=== PATIENT | female | born 1945 | race Caucasian/White ===

== ENCOUNTER → 2024-09-08 | Outpatient (CLI) | payer OTHER, MEDICAID, SELFPAY ==
[2024-09-08 13:12] LABS: Glucose Estimated Average 91 mg/dL (80-131); Hemoglobin A1C 4.8 % Hgb (4.8-6.0)
[2024-09-08 13:22] LABS: Alanine Aminotransferase 12 U/L (10-49); Albumin, Serum 4.2 gm/dL (3.4-4.8); Albumin/Globulin Ratio 1.3 (1.2-2.2); Alkaline Phosphatase 122 U/L (46-116); Anion Gap 10 (7-16); Aspartate Amino Transferase < 10 U/L (0-34); BUN/Creatinine Ratio 11 Ratio (12-20); Bilirubin,Total 0.7 mg/dL (0.3-1.2); Blood Urea Nitrogen 11 mg/dL (9-23); Calcium 9.7 mg/dL (8.3-10.6); Calcium (Corrected) 9.7 mg/dL (8.5-10.1); Carbon Dioxide 26.5 mMol/L (20.0-31.0); Cardiac Risk Estimate 3.1 RATIO (3.7-5.6); Chloride 104 mMol/L (98-107); Cholesterol 145 mg/dL (132-200); Globulin 3.2 gm/dL (2.3-3.5); Glucose 96 mg/dL (74-106); HDL Cholesterol 47 mg/dL (40-60); LDL Cholesterol,Calculated 75 mg/dL (0-130); Osmolality,Calculated 278 (275-295); Potassium 4.1 mMol/L (3.4-5.1); Sodium 140 mMol/L (136-145); Total Protein 7.4 gm/dL (5.7-8.2); Triglycerides 116 mg/dL (30-150); eGFR 57 See Note
[2024-09-14 06:45] LABS: Gamma Glutamyl Transpeptidase* 19 U/L (3-65)
== END | disposition home or self-care (01) ==
LOC: COPL 11:50
PROVIDERS: PCP Family Medicine; Referring Provider Family Medicine; Visit Provider Family Medicine
DX: K75.81 Nonalcoholic steatohepatitis (NASH) (principal); I10 Essential (primary) hypertension; R73.03 Prediabetes
CPT/HCPCS: 36415; 80053; 80061; 82977; 83036

== ENCOUNTER → 2025-05-10 | Outpatient (CLI) | payer OTHER, MEDICAID, SELFPAY ==
[2025-05-10 11:59] LABS: Collection Type, Urine Clean Catch
[2025-05-10 12:12] LABS: Basophils # (Auto) 0.0 Thou/mm3 (0.0-0.2); Basophils % (Auto) 0 % (0-2.5); Eosinophils # (Auto) 0.1 Thou/mm3 (0.0-0.5); Eosinophils % (Auto) 2 % (0-10); Hematocrit 35.9 % (36.0-46.0); Hemoglobin 12.0 g/dL (12.0-16.0); Immature Granulocytes Auto 0.00 Thou/mm3 (0.00-0.00); Lymphocytes # (Auto) 1.6 Thou/mm3 (1.0-4.8); Lymphocytes % (Auto) 27 % (10-50); Mean Corpuscular HGB Conc 33.4 g/dl (31.0-37.0); Mean Corpuscular Hemoglobin 28.7 pg (25.0-35.0); Mean Corpuscular Volume 86 fL (80-100); Monocytes # (Auto) 0.3 Thou/mm3 (0.0-0.8); Monocytes % (Auto) 4 % (0-12); Neutrophils # (Auto) 4.0 Thou/mm3 (1.8-7.7); Neutrophils % (Auto) 67 % (37-80); Nucleated Red Blood Cell # 0.00 Thou/mm3 (0.00-0.00); Nucleated Red Blood Cell % 0 /100 WBC (0); Platelet Count 219 Thou/mm3 (140-440); RDW Standard Deviation 44.6 fL (36.4-46.3); Red Blood Count 4.18 Miln/mm3 (4.00-5.20); White Blood Count 5.9 Thou/mm3 (3.6-11.0)
[2025-05-10 12:13] LABS: Bilirubin,Urine Negative (Negative); Blood,Urine Negative (Negative); Clarity,Urine Clear (Clear/Hazy); Color,Urine Yellow (Lt Yel-Yel); Culture Indicated,Urine Not Indicated; Glucose, Urine Negative (Negative); Ketones,Urine Negative (Negative); Leukocyte Esterase,Urine Positive (Negative); Nitrite,Urine Negative (Negative); PH,Urine 6.5 (5.0-7.0); Protein,Urine Negative (Neg - Trace); RBC,Urine 6 /hpf (0-3); Specific Gravity,Urine 1.022 (1.001-1.035); Squamous Epithelial Cell,Urine 1 /hpf (0-5); Urobilinogen,Urine Negative mg/dL (0.0-1.0); WBC,Urine 2 /hpf (0-5)
[2025-05-10 12:30] LABS: Vitamin D 25 Hydroxy Total 42.3 ng/mL (7.3-40.2)
[2025-05-10 12:35] LABS: Glucose Estimated Average 103 mg/dL (80-131); Hemoglobin A1C 5.2 % Hgb (4.8-6.0)
[2025-05-10 12:38] LABS: Alanine Aminotransferase < 7 U/L (10-49); Albumin, Serum 4.3 gm/dL (3.4-4.8); Albumin/Globulin Ratio 1.4 (1.2-2.2); Alkaline Phosphatase 120 U/L (46-116); Anion Gap 11 (7-16); Aspartate Amino Transferase 16 U/L (0-34); BUN/Creatinine Ratio 10 Ratio (12-20); Bilirubin,Total 0.5 mg/dL (0.3-1.2); Blood Urea Nitrogen 8 mg/dL (9-23); Calcium 9.0 mg/dL (8.3-10.6); Calcium (Corrected) 9.0 mg/dL (8.5-10.1); Carbon Dioxide 24.0 mMol/L (20.0-31.0); Cardiac Risk Estimate 3.3 RATIO (3.7-5.6); Chloride 106 mMol/L (98-107); Cholesterol 127 mg/dL (132-200); Creatinine (Component) 0.8 mg/dL (0.6-1.3); Globulin 3.0 gm/dL (2.3-3.5); Glucose 89 mg/dL (74-106); HDL Cholesterol 39 mg/dL (40-60); LDL Cholesterol,Calculated 62 mg/dL (0-130); Osmolality,Calculated 278 (275-295); Potassium 4.1 mMol/L (3.4-5.1); Sodium 141 mMol/L (136-145); Total Protein 7.3 gm/dL (5.7-8.2); Triglycerides 128 mg/dL (30-150); eGFR > 60 See Note
== END | disposition home or self-care (01) ==
LOC: COPL 11:28
PROVIDERS: PCP Nurse Practitioner Family; Referring Provider Nurse Practitioner Family; Visit Provider Nurse Practitioner Family
DX: Z00.00 Encounter for general adult medical examination without abnormal findings (principal); E11.9 Type 2 diabetes mellitus without complications; E55.9 Vitamin D deficiency, unspecified; K21.9 Gastro-esophageal reflux disease without esophagitis
CPT/HCPCS: 36415; 80053; 80061; 81001; 82306; 83036; 85025

== ENCOUNTER → 2025-05-17 | Outpatient (CLI) | payer OTHER, MEDICAID, SELFPAY ==
[2025-05-17 11:47] LABS: Collection Type, Urine Clean Catch
[2025-05-17 12:58] LABS: Bacteria,Urine Rare; Bilirubin,Urine Negative (Negative); Blood,Urine Negative (Negative); Clarity,Urine Clear (Clear/Hazy); Color,Urine Lt-Yellow (Lt Yel-Yel); Culture Indicated,Urine Not Indicated; Glucose, Urine Negative (Negative); Ketones,Urine Negative (Negative); Leukocyte Esterase,Urine Positive (Negative); Nitrite,Urine Negative (Negative); PH,Urine 6.5 (5.0-7.0); Protein,Urine Negative (Neg - Trace); RBC,Urine 2 /hpf (0-3); Specific Gravity,Urine 1.007 (1.001-1.035); Squamous Epithelial Cell,Urine 3 /hpf (0-5); Urobilinogen,Urine Negative mg/dL (0.0-1.0); WBC,Urine 6 /hpf (0-5)
== END | disposition home or self-care (01) ==
LOC: SLDO 11:42
PROVIDERS: PCP Nurse Practitioner Family; Referring Provider Nurse Practitioner Family; Visit Provider Nurse Practitioner Family
DX: Z00.00 Encounter for general adult medical examination without abnormal findings (principal); E11.9 Type 2 diabetes mellitus without complications; E55.9 Vitamin D deficiency, unspecified; K21.9 Gastro-esophageal reflux disease without esophagitis
CPT/HCPCS: 81001